=== PATIENT | female | born 1955 | race Caucasian/White ===

== ENCOUNTER 2024-01-21 18:00 | Emergency (ER) | payer MEDICARE, OTHER ==
[2024-01-21] MEDS: Lidocaine 2% 5 ML SDV INJECT ONE (18:36)
[2024-01-21] MEDS: Lidocaine 2% 20 ML MDV ONE (18:36)
== END 2024-01-21 19:10 | disposition home or self-care (01) ==
LOC: JD.ED 18:00
DX: S60.551A Superficial foreign body of right hand, initial encounter (principal); Z79.84 Long term (current) use of oral hypoglycemic drugs; Z79.899 Other long term (current) drug therapy; W45.8XXA Other foreign body or object entering through skin, initial encounter
CPT/HCPCS: 99283; J2001